=== PATIENT | male | born 1930 | race Caucasian/White ===

== ENCOUNTER 2016-06-18 20:32 | Emergency (ER) | payer OTHER ==
[~2016-06-18] VITALS: Ht 170.2 cm; Wt 54.4 kg
[~2016-06-18 20:32] MED LIST: SINEMET 25-1001 EAC1 PO; VITAMIN D1000 UNI1 PO
[2016-06-18 21:33] LABS: ABSOLUTE NEUTROPHILS 9.4 thou/uL (1.4-8.2); BASOPHILS 0.3 % (0.0-2.0); EOSINOPHILS 0.2 % (0.0-3.0); HEMATOCRIT 37.3 % (42.0-52.0); HEMOGLOBIN 12.5 gm/dL (14.0-18.0); LYMPHOCYTES 11.2 % (24.0-44.0); MCH 31.5 pg (26.0-34.0); MCHC 33.6 g/dL (28.0-37.0); MCV 93.6 fL (80.0-100.0); MONOCYTES 9.3 % (1.0-8.0); PLATELET COUNT 228 thou/uL (150-400); RBC 3.98 mil/uL (4.50-6.00); RDW 13.5 % (10.5-14.5); WBC 11.8 thou/uL (4.0-11.0)
[2016-06-18 21:34] LABS: URINE BILIRUBIN NEGATIVE (Negative); URINE BLOOD 3+ (Negative); URINE COLOR YELLOW; URINE GLUCOSE-RANDOM* NEGATIVE (Negative); URINE KETONES NEGATIVE (Negative); URINE LEUKOCYTES-REFLEX 2+ (Negative); URINE PROTEIN (DIPSTICK) 3+ (Negative); URINE UROBILINOGEN 0.2 E.U./dl (0.2-1.0)
[2016-06-18 21:36] LABS: MANUAL DIFF NO
[2016-06-18 21:40] LABS: CALCIUM 9.4 mg/dL (8.5-10.1); CREATININE 3.8 mg/dL (0.7-1.3); MAGNESIUM 2.1 mg/dL (1.8-2.4); POTASSIUM 4.1 mmol/L (3.5-5.1)
[2016-06-18 21:46] LABS: CASTS None Seen /LPF (None Seen); SQUAMOUS 4-10 Moderate /LPF (0-3); URINE WBC-REFLEX >25 Many /HPF (0-5)
[2016-06-18 21:48] LABS: CRYSTALS None Seen /LPF (None Seen)
[2016-06-18] MEDS ORDERED: KEFLEX500 MG PO (22:25)
[2016-06-18 23:07] VITALS: BP 126/61
== END 2016-06-18 23:08 | disposition home or self-care (01) ==
LOC: ER 20:32
PROVIDERS: Emergency Medicine
DX: N39.0 Urinary tract infection, site not specified (principal); R53.1 Weakness; N18.6 End stage renal disease

== ENCOUNTER 2016-11-10 15:30 | Inpatient (IN) | payer OTHER ==
[~2016-11-10] VITALS: Ht 170.2 cm; Wt 53.7 kg
[2016-11-10] VITALS (20 sets, daily range): BP systolic 98–136; BP diastolic 45–74
--- NOTE | ~2016-11-10 | O ---
[facility] [place] [address] OPERATIVE REPORT Name: SAMPSON CARDOSO Room #: 245-P ADM IN M.R.#: [id number] Admission: 11/10/16 Attend Phys: Jt Jennings DO Discharge: Date of : 30 Report #: [id number] THIS REPORT FOR: //name// CC: [facility] physician/PCP Jt Núñez MD DATE OF SERVICE: 11/11/2016 SURGEON: Shaquille Cummings MD. DENTURE LABORATORY TECHNICIAN: None. PREOPERATIVE DIAGNOSIS: Multiple decubitus ulcers (right heel, left hip, sacrum). POSTOPERATIVE DIAGNOSES: 1. Stage 4 right heel decubitus ulcer. 2. Stage 4 left hip decubitus ulcer. 3. Stage 4 sacral decubitus ulcer. PROCEDURES PERFORMED: 1. Excisional debridement of stage 4 right heel decubitus ulcer, including skin, subcutaneous tissue, muscle and bone (starting measurements 5 cm wide x 3 cm long; ending measurement 6.4 cm wide x 6.7 cm long, equals 42.9 cm2). 2. Application of biological skin substitute (MiroDerm) to debrided right heel decubitus ulcer, (42.9 cm2). 3. Excisional debridement of stage IV left hip decubitus ulcer, including skin, subcutaneous tissue, muscle and bone (starting measurement 4 cm wide x 6 cm long; ending measurement 8.7 cm wide x 13.3 cm long, equals 115.7 cm2). 4. Application of biological skin substitute (MiroDerm) to debrided left hip decubitus ulcer (5 x 5 cm to abscess cavity; 115.7 cm2 area of coverage). 5. Excisional debridement of stage 4 sacral decubitus ulcer including skin, subcutaneous tissue, muscle and bone (starting measurements 2.5 cm wide x 5.5 cm long; ending measurement 9.5 cm wide x 11 cm long equals 104.5 cm2). 6. Misonix ultrasonic debridement of stage IV right heel decubitus ulcer, stage 4 left hip decubitus ulcer, and a stage 4 sacral decubitus ulcer. ANESTHESIA: General endotracheal anesthesia and local anesthetic. ESTIMATED BLOOD LOSS: 25 mL. SPECIMEN: Skin, subcutaneous tissue, muscle and bone from all 3 areas. COMPLICATIONS: None appreciated. [address] [address] OPERATIVE REPORT Name: SAMPSON CARDOSO Room #: 245-P [facility] IN M.R.#: [id number] Admission: 11/10/16 Attend Phys: Jt Jennings DO Discharge: Date of : 30 Report #: [id number] INDICATIONS FOR PROCEDURE: This is an 86-year-old demented male patient with a history of Parkinson disease and end-stage renal disease with hemodialysis dependence. He presented to the [facility] with fever, chills and body aches. The patient reportedly had not been eating well and had some mental status changes. When seen in the Emergency Room, the patient was nonverbal. A large stage IV pressure ulcer was seen while the patient was in the Emergency Room, prompting consultation. The patient also had pressure wounds to his right heel and left hip. CT of the pelvis revealed a large sacral decubitus ulcer over the tip of the coccyx and lower sacrum, extending to the bone, with adjacent gas anteriorly. The patient had an elevated white blood cell count and lactate, which has normalized since his admission. The patient presents now for excisional debridement. OPERATIVE FINDINGS: Please see measurements above. The patient's left hip decubitus ulcer had an associated 5 x 5 cm abscess overlying the muscle, extending to the anterior left thigh. MiroDerm mesh was placed within the cavity. MiroDerm was also applied to the right heel and left hip wounds, but not to the sacrum due to increased risk of contamination from proximity to the anus. There was mild bony involvement of both the right heel and left hip, with extensive bony involvement of the coccyx and sacrum, which were both grossly necrotic and malodorous. The rectum was protected throughout the dissection. DESCRIPTION OF PROCEDURE IN DETAIL: After the risks, benefits, and expectations of the operation were discussed in detail with the patient's family, informed consent was obtained. The patient was identified in preoperative holding area. He was receiving scheduled IV antibiotics. He was taken to the operating room and he was placed in the supine position. He was then given IV sedation and he was intubated without incident. While in the supine position, his leg was placed under some bumps and his right heel was prepped and draped in the standard sterile fashion. A time-out was performed to identify the correct patient and procedure. Local anesthetic was infiltrated into the skin and subcutaneous tissue, in the area of the planned incision. A sharp #10 blade scalpel was used to make an incision through the skin and subcutaneous tissue. The tissue was then excised sharply down to the bone. There were soft areas of the bone, which were opened with a rongeur. Cultures were taken more superficially and from the bone. After debriding away tissue down to healthy bleeding tissue throughout the area, the bone was filed down with a rasp. Bleeding points were made hemostatic with electrocautery. The Misonix device was then used to ultrasonically debride the entire surface area of the wound. MiroDerm 5 x 5 cm fenestrated skin substitute was then sutured to the periphery of the wound as well as to the wound base using interrupted 2-0 Vicryl sutures. Excess MiroDerm was trimmed away. The MiroDerm was then covered with Adaptic and dressed with a wet-to-dry normal saline Kerlix sponge, 4 x 4s, a Kerlix roll, and an Michael wrap. [address] [address] OPERATIVE REPORT Name: SAMPSON CARDOSO Room #: 245-P [facility] IN ..#: [id number] Admission: 11/10/16 Attend Phys: Jt Jennings DO Discharge: Date of : 30 Report #: [id number] The patient was then repositioned to the right lateral decubitus position. The patient's left hip and sacrum area were prepped and draped in the standard sterile fashion. The left hip debridement was undertaken first. Local anesthetic was infiltrated into the skin and subcutaneous tissue in the area of the planned incision. A sharp #10 blade scalpel was used to make the incision through the skin and subcutaneous tissue. The excess tissue was then trimmed away sharply. Electrocautery was used to control bleeding. An additional area of purulence was identified on the left anterior thigh, extending over the quadriceps muscle. The abscess was drained. Further excisional debridement of tissue was necessary at the superior most aspect of the wound. All necrotic tissue was dissected free. The wound was then irrigated. The Magtononix ultrasonic debridement device was then used to debride the entire surface area of the left hip wound. Bleeding points were made hemostatic. The MiroDerm skin substitute was then applied to the wound base and edges of the wound. Simple interrupted 2-0 Vicryl sutures were used to approximate the mesh to the tissue. Prior to doing this, the abscess cavity was irrigated and suctioned. Cultures have been taken from the superficial tissue as well as from the bone. The MiroDerm mesh was oriented, then advanced into the abscess cavity. The remainder of the MiroDerm mesh was sutured to the wound edges and base of the wound. Excess MiroDerm was discarded. Adaptic, then 4 x 4s were used to dress the wound. Excisional debridement of the sacrococcygeal was undertaken next. Local anesthetic was infiltrated into the skin and subcutaneous tissue in the area of the planned incision. A sharp #10 blade scalpel was used to make the incision through the skin and subcutaneous tissue. Electrocautery was used to dissect through the subcutaneous tissue and excise the necrotic skin and subcutaneous tissue. Areas of muscle appeared to be nonviable. The sacrum and coccyx were both grossly necrotic. The coccyx was removed. The sacrum was then debrided away with rongeur to excise all affected areas. Cultures were taken from the more superficial tissue as well as from the bone. The small abscess cavity anterior to the sacrum was opened. The wound was then irrigated and suctioned. The Magtononix ultrasonic device was then used to debride the entire surface area of the sacral wound. Bleeding points were made hemostatic with electrocautery. Bone wax was applied to an area of the sacrum that oozed in areas where the bleeding did not stop with electrocautery. The wound was then irrigated and suctioned. A 1:1 Betadine to normal saline moistened gauze was then packed into the sacrococcygeal debridement area. Dressings were applied. The patient tolerated the procedure well. He was awakened, extubated, and [facility] [address] [place] [address] OPERATIVE REPORT Name: SAMPSON CARDOSO Room #: 245-P [facility] IN M.R.#: [id number] Admission: 11/10/16 Attend Phys: Jt Jennings DO Discharge: Date of : 30 Report #: [id number] taken to recovery room in stable condition with no apparent intraoperative complications. <ELECTRONICALLY SIGNED> By: Shaquille Cummings MD, FACS 11/12/16 0822 2046 230 Shaquille Cummings MD, FACS /nt
--- NOTE | ~2016-11-10 | HC ---
[facility] [place] [address] CONSULTATION Name: SAMPSON CARDOSO Room #: 245-P [facility] IN M.R.#: [id number] Admission: 11/10/16 Attend Phys: Jt Jennings DO Discharge: Date of : 30 Report #: [id number] THIS REPORT FOR: //name// CC: [facility] physician/PCP Jt Jennings INFECTIOUS DISEASE CONSULTATION ATTENDING PHYSICIAN: Dick. REASON FOR CONSULTATION: Sepsis. 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 The patient is treated with single dose Zosyn and vancomycin. I ordered Zosyn 2.25 grams IV every 8 hours and vancomycin random level. We will reorder vancomycin per protocol. Currently, the patient in the intensive care unit. Fluids have been stopped. The patient is awake, but unable to give any information whatsoever. PAST MEDICAL HISTORY: End-stage renal disease, on hemodialysis through a left arm fistula Anemia of chronic disease. Stage 4 sacral decubitus, possible osteomyelitis. Stage 4 left hip decubitus. Dry black eschar right heel. Possible Parkinson's disease. There is a history of an abnormal EKG with ischemic changes on lateral leads, very much atrial contractures. SOCIAL HISTORY: Unable to obtain. FAMILY HISTORY: Unable to obtain. REVIEW OF SYSTEMS: Unable to obtain. PHYSICAL EXAMINATION: GENERAL: Elderly white man, unable to give any information whatsoever. VITAL SIGNS: Presenting temperature of 101.6 on admission, pulse 122, respirations ____, BP 121/73, subsequently blood pressure dropped to 89/55. HEENMT: Pupils reactive. Mouth: Dry mucous membrane. NECK: Supple. LUNGS: Clear. HEART: S1, S2. No gallop. ABDOMEN: Soft, no masses or megaly. GENITALIA: Ilma catheter in place. RECTAL: Deferred. Incontinent of stool. EXTREMITIES: The patient has stage 4 sacral decubitus with exposed deep [facility] [address] [place] [address] CONSULTATION Name: SAMPSON CARDOSO Room #: 245-P [facility] IN M.R.#: [id number] Admission: 11/10/16 Attend Phys: Jt Jennings DO Discharge: Date of : 30 Report #: [id number] structures. There is also a left hip decubitus, stage 4. There is a dry eschar black on the right heel. Extremities with wasting of muscles. NEUROLOGIC: Grossly within normal limits. LABORATORY DATA: Sodium 142, potassium 4, CO2 of 29, BUN 66, creatinine 4.1, glucose 147. SGOT 76, lipase 61. Total bilirubin 1.2, magnesium 2.1, albumin 1.2 g/dL. NT-proBNP greater than 70,000. Troponin 0.10. White blood cell count on admission 21,900, down to 12,200 today, hemoglobin 6.8 g/dL, platelets 247,000. The white blood cell count differential revealed 90% neutrophils yesterday. A vancomycin random is 12 today. MRSA negative by PCR. Viral respiratory panel pending. Procalcitonin elevated at 9.40. Urinalysis revealed 2+ protein, 2+ bilirubin, trace blood, 2+ urobilinogen, trace leukocyte esterase. The microscopic exam revealed pyuria and bacteriuria as well as fine granular cast compatible with acute pyelonephritis. The blood gases reveal pH 7.45, pCO2 of 40, pO2 of 76, bicarbonate 27, lactate 2.25. These set of gases on 2 liters oxygen nasal cannula. Decubitus culture reveals Staphylococcus aureus, possible MSSA. Blood cultures, one of the sample revealed gram-positive cocci and another sample revealed gram-negative rods. RADIOLOGY EVALUATION: Right ankle x-ray revealed no evidence of osteomyelitis. A chest x-ray revealed right internal jugular central venous catheter. CT scan of the pelvis did reveal a moderate amount of stool in the colon, possible rectal prolapse. Large sacral decubitus ulcer over the tip of the coccyx and lower sacrum with gas in adjacent to the bone, possible osteomyelitis. MEDICATIONS: The patient is currently on treatment with vancomycin 500 mg post-hemodialysis 3 times weekly, Zosyn 2.25 grams IV every 8 hours, topical oxychlorosene, p.r.n. glucose glucagon. Pressors has been ordered and as needed, he has received none. Intravenous fluids have been discontinued currently. ASSESSMENT: 1. Severe sepsis. 2. Polymicrobic bacteremia with gram-negative rods and gram-positive cocci. 3. Stage 4 sacral decubitus -- osteomyelitis. 4. Possible stage 4 left hip decubitus. 5. Eschar black, right heel. 6. End-stage renal disease, on hemodialysis. 7. Dementia. 8. Severe anemia. 9. Severe malnutrition. SUGGESTIONS: Recommend local wound care to decubitus, dialysis 3 times weekly, intravenous vancomycin and Zosyn as currently ordered. [facility] [address] [place] [address] CONSULTATION Name: SAMPSON CARDOSO Room #: 245-P ADM IN M.R.#: [id number] Admission: 11/10/16 Attend Phys: Jt Jennings DO Discharge: Date of : 30 Report #: [id number] Jennings, thank you for requesting my suggestions in the care of your patient. <ELECTRONICALLY SIGNED> By: Margarito Santamaria MD 11/12/16 1321 0914 1317 Margarito Santamaria MD /nt
--- NOTE | ~2016-11-10 | S ---
[address] [place] [address] SURGICAL PATH RPT PROCEDURE Name: GUZMAN CAM Room #: 245-P ADM IN M.R.#: [id number] Admission: 11/10/16 Date of : 30 Discharge: Report #: [id number] Path Case #: [id number] PATHOLOGY REPORT COLLECTION DATE: 11/11/2016 RECEIVED DATE: 11/12/2016 SUBMITTING PHYS: Dr. Shaquille Cummings OTHER PHYS: Dr. Jt Jennings SPECIMEN(S) RECEIVED: A.Necrotic tissue right heel B.Right calcaneous C.Left hip tissue D.Left ischial tuberosity E.Sacrum and coccyx F.Sacral tissue * * * * * * * * * * * * FINAL DIAGNOSIS: A. Skin with underlying soft tissue, "necrotic tissue right heel": - Extensive epidermal, dermal, and soft tissue gangrenous necrosis and fat necrosis with focal acute abscess formation. - There is no evidence of atypia or malignancy. - See comment. B. Fragments of bone and surrounding soft tissue, "right calcaneous": - Soft tissue and bone revealing acute osteomyelitis and degenerative changes. C. Skin with underlying fibroadipose tissue, "left hip tissue": - Extensive gangrenous necrosis with acute inflammation forming acute abscess. - See comment. D. Bone and soft tissue, "left ischial tuberosity": - Fragments of bone with surrounding soft tissue revealing acute abscess formation with gangrenous type of necrosis. E. Bone and soft tissue, "sacrum and coccyx": - Extensive acute inflammation extending into the underlying bone with microabscess formation with foci of osteomyelitis. - Extensive gangrenous type of necrosis. F. Skin with underlying soft tissue, "sacral tissue": - Extensive ulceration with necrotic acute inflammatory exudate extending deeply into the underlying soft tissue with fat necrosis and microabscess formation. COMMENT: Correlate with microbiological cultures. (SHA:mgedgra; 11/13/2016) [address] [address] SURGICAL PATH RPT PROCEDURE Name: GUZMAN CAM Room #: 245-P ADM IN M.R.#: [id number] Admission: 11/10/16 Date of : 30 Discharge: Report #: [id number] Path Case #: [id number] PATHOLOGIST: Ankur Henriquez M.D. REPORT ELECTRONICALLY SIGNED BY: Ankur Henriquez M.D. DATE/TIME: 11/13/2016 13:07 * * * * * * * * * * * * GROSS PATHOLOGY: A. The specimen is received in formalin, labeled "Guzman Cam, necrotic tissue right heel". Received is a segment of pale garcia to dark kowalski necrotic soft tissue with loosely attached skin measuring 6.2 x 4.2 x 1.6 cm in greatest dimensions. The specimen is submitted representatively in cassette A1. B. The specimen is received in formalin, labeled "Guzman Cam, right calcaneus". Received are multiple segments of pink-garcia soft tissue admixed with pale yellow, granular segments of calcified material measuring 3.2 x 2.2 x 0.9 cm in aggregate dimensions. The specimen is submitted representatively in cassette B1, following decalcification. C. The specimen is received in formalin, labeled "Guzman Cam, left hip tissue". Received are multiple segments of pale garcia to dark kowalski, necrotic skin admixed with pale yellow to kowalski-garcia soft tissue measuring 11.2 x 6.4 x 3.3 cm in aggregate dimensions. The specimen is submitted representatively in cassette C1. D. The specimen is received in formalin, labeled "Guzman Cam, left ischial tuberosity". Received are multiple fragments of garcia-brown soft tissue admixed with pale yellow, fibroadipose tissue measuring 2.8 x 1.7 x 0.4 cm in aggregate dimensions. The specimen is submitted representatively in cassette D1. E. The specimen is received in formalin, labeled "Guzman Cam, sacrum and coccyx". Received are multiple segments of garcia-brown soft tissue admixed with fragments of dark garcia bone measuring 5.7 x 3.9 x 0.8 cm in aggregate dimensions. The specimen is submitted representatively in cassette E1, following decalcification. F. The specimen is received in formalin, labeled "Guzman Cam, sacral tissue". Received is a donut-shaped segment of pale garcia and partially necrotic skin with attached underlying pale white to yellow soft tissue measuring 7.0 x 6.4 x 1.4 cm in greatest dimensions. The specimen is submitted representatively in cassette F1. (DAC; 11/12/2016) CLINICAL HISTORY: Decubitus ulcer sacrum, heel and hip INITIAL CPT CODE(S): A; 32363 B; 27399, 59337 C; [address] [address] SURGICAL PATH RPT PROCEDURE Name: GUZMAN CAM Room #: 245-P ADM IN M.R.#: [id number] Admission: 11/10/16 Date of : 30 Discharge: Report #: [id number] Path Case #: [id number] D; [id number] E; [id number], [id number] F; [id number] Professional services performed by [facility] at [place] [address] [address], [place] [address] Technical services performed by [facility] at [address] [place] [address], [facility] [address] [address]. [facility] [address] [place] [address] PHONE: [phone] DIRECTOR: Phi Nevarez M.D. * * * END OF REPORT * * *
--- NOTE | ~2016-11-10 | HC ---
[facility] [place] [address] [place] [address] CONSULTATION Name: SAMPSON CARDOSO Room #: 245-P ADM IN M.R.#: [id number] Admission: 11/10/16 Attend Phys: Jt Jennings DO Discharge: Date of : 30 Report #: [id number] THIS REPORT FOR: //name// CC: [facility] physician/PCP Jt Jennings INDICATION FOR THE CONSULTATION: End-stage renal disease. REASON FOR PRESENTATION: Brought by the family. 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 EMS was called to his family that the patient is failing. Family reported that ever since he got the flu shot few days ago, he started to have fever and body headaches along with chills. The details of the history are really limited due to the fact that the patient is not able to provide us with the history given his dementia. On presentation to the emergency room, sepsis criteria were met. He was found to have extensive sacral and lower extremities decub. I was asked to manage his dialysis. PAST MEDICAL HISTORY: 1. End-stage renal disease, maintained on dialysis every Thursday, Thursday and Thursday. 2. Sacral decub. 3. Status post left AV fistula. 4. Osteomyelitis. ALLERGIES: No known drug allergies. MEDICATIONS: Listed on the patient's medications only cephalexin. FAMILY HISTORY: Unobtainable given the patient's mental status and it was not provided to the ER staff. FAMILY HISTORY AND SOCIAL HISTORY: None reported and the patient is not able to provide me with the details. REVIEW OF SYSTEMS: Unobtainable given the patient's mental status. PHYSICAL EXAMINATION: GENERAL: The patient is very thin, cachectic, emaciated. VITAL SIGNS: Blood pressure of 89/55, temperature of 36.4. He has a left upper extremity AV fistula. HEAD AND NECK: Emaciated, no JVD. CHEST: Decreased air entry bilaterally with minimal crackles. CARDIOVASCULAR: No rub. ABDOMEN: Soft and nontender. [facility] [address] [place] [address] CONSULTATION Name: SAMPSON CARDOSO Room #: 245-P [facility] IN M.R.#: [id number] Admission: 11/10/16 Attend Phys: Jt Jennings DO Discharge: Date of : 30 Report #: [id number] LOWER EXTREMITIES: Extensive heel ulcers bilaterally. Images of his sacral decub were reviewed. LABORATORY VALUES: Reviewed. BUN is 66, creatinine is 4.1. Imaging including his chest x-ray and pelvis CTs were reviewed. ASSESSMENT, IMPRESSION AND PLAN: 1. End-stage renal disease. 2. Sacral decub with osteomyelitis. 3. Sepsis. 4. Severe debility. 5. We will contact with the family regarding the dialysis regimen of the patient. 6. Discontinue IV fluids. 7. Use pressors p.r.n. 8. This is an 86-year-old with dementia, severe sacral decub osteomyelitis, and end-stage renal disease, I would definitely discuss with the family, palliative and comfort care given his comorbid issues. By: [id number] Florence Frank MD /nt
--- NOTE | ~2016-11-10 | EKG ---
[address] [place] [place] [address] ELECTROCARDIOGRAM REPORT Name: SAMPSON CARDOSO Room #: REG [facility] [place]#: [id number] Admission: 11/10/16 Attend Phys: Discharge: Date of : 30 Report #: [id number] THIS REPORT FOR: //name// [facility] ED Test Date: 2016-11-10 Test Time: 15:47:17 Pat Name: SAMPSON CARDOSO Department: Room: Gender: M Solutions Engineer: [id number] : 1930 Requested By: Brannon Kang Order Number: [id number] MD: Braulio Santamaria Measurements Intervals [place] Rate: 123 P: -74 ID: [id number] QRS: -60 QRSD: 92 T: 88 QT: 323 QTc: 462 Interpretive Statements Sinus or ectopic atrial tachycardia Atrial premature complex Left anterior fascicular block Abnormal T, consider ischemia, lateral leads No previous ECG available for comparison Electronically Signed On 11-10-2016 16:33:55 CDT by Braulio Santamaria [email or web address] <ELECTRONICALLY SIGNED> By: Braulio Santamaria MD 11/10/16 1633 1547 154 Braulio Santamaria MD /CHAD
--- NOTE | ~2016-11-10 | HC ---
[facility] [place] [address] CONSULTATION Name: SAMPSON CARDOSO Room #: 245-P [facility] IN M.R.#: [id number] Admission: 11/10/16 Attend Phys: Jt Jennings DO Discharge: Date of : 30 Report #: [id number] THIS REPORT FOR: //name// CC: ALBARO physician/PCP Jt Jennings DATE OF SERVICE: 11/11/2016 REASON FOR CONSULTATION: Decubitus ulcers. HISTORY OF PRESENT ILLNESS: This is an 86-year-old demented male patient with history of Parkinson's Disease and end-stage renal disease with hemodialysis dependence who presented to the [facility] Emergency Room with fever, chills and bodyaches. The patient reportedly had not been eating. When seen in the Emergency Room, he was nonverbal, and according to the patient's family, this is a significant change for him. 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 The patient underwent a CT of the pelvis showing a large sacral decubitus ulcer over the tip of the coccyx and lower sacrum extending to the bone with adjacent gas. I have been asked to see the patient for further evaluation and treatment. The patient was felt to be septic with an elevated white blood cell count and an elevated lactate. He has been admitted to the intensive care unit. PAST MEDICAL HISTORY: End-stage renal disease with hemodialysis dependence, status post left upper extremity AV fistula, Parkinson's Disease with dementia and generalized debility. MEDICATIONS: Please see the hospital chart for dosing details. The patient is currently receiving Zosyn and vancomycin as well as p.r.n. medications. ALLERGIES: No known drug allergies. FAMILY HISTORY: Reviewed and noncontributory to this hospitalization. SOCIAL HISTORY: The patient is a retired physician. There is no reported use of tobacco, alcohol or illicit drugs. The patient lives with his son and xyvkfocb-[id number]-lng. He undergoes hemodialysis on Thursday, and Thursday, most recently dialyzed this past Thursday. REVIEW OF SYSTEMS: As per history of present illness. Other review of systems is unobtainable as the patient is nonverbal. PHYSICAL EXAMINATION: VITAL SIGNS: Temperature 96.9, blood pressure 89/55, pulse 71, respirations 24. [facility] [address] [place] [address] CONSULTATION Name: ASMPSON CARDOSO Room #: 245-P [facility] IN M.R.#: [id number] Admission: 11/10/16 Attend Phys: Jt Jennings DO Discharge: Date of : 30 Report #: [id number] GENERAL: This is an 86-year-old nonverbal male patient in no acute distress. He is currently undergoing hemodialysis. HEENT: Atraumatic, normocephalic with moist mucosal membranes. NECK: Supple, no appreciable lymphadenopathy. Trachea is midline. CHEST: Clear bilaterally. CARDIOVASCULAR: Regular rate and rhythm. ABDOMEN: Soft and nondistended with no appreciable tenderness to palpation. There are no palpable masses, no appreciable hernias. GENITOURINARY: Normal external male genitalia. EXTREMITIES: No clubbing or cyanosis. The posterior aspect of his right heel shows eschar. A left upper extremity AV fistula is present. RECTAL: Shows a large sacral decubitus ulcer with malodorous drainage. An unstageable left hip ulcer is also present. SKIN AND INTEGUMENTARY: No jaundice; skin changes as noted above. RADIOLOGIC STUDIES: CT of the pelvis, findings are as noted above. Three-view x-ray of the right ankle showed no evidence for osteomyelitis. Chest x-ray showed a small right pleural effusion. LABORATORY DATA: CBC this morning showed a white blood cell count of 12.2, hemoglobin 6.8, hematocrit 21.3 and platelets 247 with 72% segmented neutrophils and 18% bandemia. His initial CBC at the time of his admission showed a white blood cell count of 21.9, hemoglobin 8.3, hematocrit 26.5 and platelets 367. His lactate was elevated at 7.5 and this was coming down to 1.4 earlier this morning. The patient's BNP was greater than 70,000. Comprehensive metabolic profile showed a sodium of 142, potassium 4.0, chloride 105, CO2 29, BUN 66, creatinine 4.1 and glucose 147. Bilirubin was 1.2. The remainder of his liver function tests was essentially within normal limits other than an elevated AST of 76. IMPRESSION AND PLAN: This is an 86-year-old male patient with history of Parkinson disease, dementia, end-stage renal disease with hemodialysis dependence who now appears to be septic, likely secondary to his decubitus ulcers. He appears to have osteomyelitis/stage 4 changes involving the sacrococcygeal area. His left hip is unstageable, as is his right heel. I discussed these findings with the patient's family who are also the medical decision makers. The patient would benefit from excisional debridement of his wounds and ultimately may benefit from conversion of this fecal stream (diverting colostomy) to optimize the healing environment. I sincerely appreciate the opportunity to participate in the care of this [facility] [address] [place] [address] CONSULTATION Name: SAMPSON CARDOSO Room #: 245-P ADM IN M.R.#: [id number] Admission: 11/10/16 Attend Phys: Jt Jennings DO Discharge: Date of : 30 Report #: [id number] patient and will leave further recommendations and orders in the EMR as appropriate. <ELECTRONICALLY SIGNED> By: Shaquille Cummings MD, FACS 11/11/162049 [id number] Shaquille Cummings MD, FACS /nt
--- NOTE | ~2016-11-10 | HC ---
[facility] [place] [address] CONSULTATION Name: SAMPSON CARDOSO Room #: 245-P ADM IN M.R.#: [id number] Admission: 11/10/16 Attend Phys: Jt Jennings DO Discharge: Date of : 30 Report #: [id number] THIS REPORT FOR: //name// CC: ALBARO physician/PCP Jt Jennings DATE OF SERVICE: 11/10/2016 IMPRESSION: 1. Severe sepsis. 2. Probable pneumonia. 3. Acute hypoxemia. 4. End-stage renal disease. 5. History of Parkinson's. 6. Possible osteomyelitis. 7. Contractures. 8. Elevated LFT. 9. End-stage renal disease. 10. Protein calorie malnutrition. 11. Elevated troponin. 12. Leukocytosis. 13. Anemia, normocytic. PLAN: Sepsis protocol, antibiotics per ID, aerosol therapy, wound care to see, Neurology to see. HISTORY OF PRESENT ILLNESS: An 86-year-old male with decreased mental status, weakness, received flu shot few days ago. Usually receives care at [facility]. Fever, chills per family member. I spoke to her on phone. PAST MEDICAL HISTORY: Fistula on the left. ALLERGIES: None known. SOCIAL HISTORY: Negative tobacco, ETOH. REVIEW OF SYSTEMS: The patient has had decreased appetite and decreased mental status of recent. Discussed code situation in the present. Family member wishes all done as the patient did not give her definitive except that he would not want to pass in hospital. I believe I spoken to Barrett at [phone]. PHYSICAL EXAMINATION: VITAL SIGNS: Temperature 101.6, pulse 90, respirations 37, BP 130/55. LUNGS: Coarse. [facility] [address] [place], [place] [address] CONSULTATION Name: SAMPSON CARDOSO Room #: 245-P ADM IN M.R.#: [id number] Admission: 11/10/16 Attend Phys: Jt Jennings DO Discharge: Date of : 30 Report #: [id number] HEART: Regular. ABDOMEN: Bowel sounds present. EXTREMITIES: Showed no edema. Lima catheter in place. Chest x-ray: Showed small effusion, possible infiltrate. Lactate 7.5, BUN 57, creatinine 4.3, SGOT 77. Total bilirubin 1.5, alkaline phosphatase 110, albumin 1.6. Procalcitonin 9.4. Ankle, no osteo. ProBNP greater than 70,000. We will follow closely with you. <ELECTRONICALLY SIGNED> By: Erasmo Teresa MD 11/13/16 [id number] Erasmo Teresa MD /nt
--- NOTE | ~2016-11-10 | HC ---
[facility] [place] [address] CONSULTATION Name: SAMPSON CARDOSO Room #: 245-P [facility] IN M.R.#: [id number] Admission: 11/10/16 Attend Phys: Jt Jennings DO Discharge: Date of : 30 Report #: [id number] THIS REPORT FOR: //name// CC: ALBARO physician/PCP Jt Jennings DATE OF SERVICE: 11/10/2016 NEPHROLOGY CONSULTATION DATE OF SERVICE: 11/10/2016 REASON FOR CONSULTATION: End-stage renal disease requiring hemodialysis. HISTORY OF PRESENT ILLNESS: This is an 86-year-old male who was admitted to the Emergency Room. He was brought in with a fever. He has been found to have a leukocytosis with white count of 21,000. He has also been found to have a couple of decubitus ulcers, one on his left hip area and one on his sacrum. There was a CT scan done of his pelvis in the Emergency Room. It showed the sacral ulcer is deep and actually has gas forming elements around the coccyx. He has been started on antibiotics. He has not been hypotensive. He did have a fever upon presentation. From a renal standpoint, the patient has end-stage renal disease and is a chronic hemodialysis patient. The etiology of his end-stage renal disease is not known at this time to me. Through third person who talked to the patient's bqxxwphj-io-ilv, he dialyzed at the [facility] in [place] on a Thursday, , Thursday basis. He dialyzes using a left upper arm fistula. I assume that his prior hospitalizations have been at [facility] as there are no records here at [facility] of hospitalizations. I also have no records through our office and EMR, which I reviewed to see if we could find his name. PAST MEDICAL HISTORY: End-stage renal disease as noted above. He is also demented. He is nonverbal. He has obviously had surgery for fistula placement in his arm, really not much else available at this time. MEDICATIONS: No medications on a regular basis, at least none that he takes at home. This is based again upon his bpuqaxpp-za-qeg who apparently shares a living situation with him. ALLERGIES: No known medical allergies. FAMILY HISTORY: Unavailable. SOCIAL HISTORY: The patient apparently has been living with his fvpanshd-tt-iud. Again, he dialyzes at [facility] in [place]. 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 REVIEW OF SYSTEMS: Apparently, he is nonverbal, uncertain how he eats or if he is able to do anything with that. He certainly does not participate much in his interview process or exam at this time. PHYSICAL EXAMINATION: GENERAL: Wasted, somewhat cachectic appearing male. He is lying in bed. He opens his eyes to voice, tries to mouth a couple of words, but otherwise is really not able to communicate. VITAL SIGNS: Blood pressure 114/62, heart rate is 77, oxygen saturation 99% and respiratory rate of 30. HEENT: Shows somewhat sunken facial features. Pupils are equal and reactive. Sclerae nonicteric. Oral mucosa is dry. NECK: Veins are not distended. CHEST: Shows shallow respirations bilaterally. I hear no rales, rhonchi or wheezes. CARDIOVASCULAR: Heart has a regular rate and rhythm with a grade 2 systolic murmur at the apex, which is rather harsh, no rub, no gallop. ABDOMEN: Scaphoid. Bowel sounds are present. It is soft, nontender at this time. I am unable to palpate organomegaly or masses. EXTREMITIES: Show diffuse muscle atrophy upper and lower extremities. He has a nice left upper arm brachiocephalic fistula in place, which has excellent thrill. The nursing staff is just getting ready to undress his wounds for photography purposes, but I have not yet seen them. RADIOLOGIC IMAGING: Chest x-ray showed some diffuse chronic interstitial type changes. There is some blunting of the right costal margin, otherwise negative chest x-ray. ____ his CT scan of the pelvis demonstrating the air around his coccyx from his decubitus. ASSESSMENT: 1. End-stage renal disease. Report is that he dialyzes on Thursday, , Thursday basis and again reportedly he dialyzed last 2 days ago on his regular schedule. He actually looks somewhat on the volume depleted side at this time. His electrolytes are not bad. He has a nice fistula in place. We will plan on dialysis tomorrow, which would be his normal day. 2. Sepsis related to his decubitus ulcer. He has a substantial leukocytosis and fever. He is on broad spectrum antibiotics and will require a lot of wound care. 3. Anemia related to his end-stage renal disease. 4. Chronic dementia apparently. [facility] [address] [place] [address] CONSULTATION Name: SAMPSON CARDOSO Room #: 245-P [facility] IN .R.#: [id number] Admission: 11/10/16 Attend Phys: Jt Jennings DO Discharge: Date of : 30 Report #: [id number] PLAN: 1. We will plan on dialysis tomorrow. 2. Continue wound care. 3. Continue antibiotics. 4. We will follow along the care of this patient. By: [id number] Eric Sanchez MD /selene
[~2016-11-10 15:30] MED LIST changes: +KEFLEX500 MG PO
[2016-11-10 15:59] LABS: HEMATOCRIT 26.5 % (42.0-52.0); HEMOGLOBIN 8.3 gm/dL (14.0-18.0); MCH 28.5 pg (26.0-34.0); MCHC 31.5 g/dL (28.0-37.0); MCV 90.5 fL (80.0-100.0); PLATELET COUNT 367 thou/uL (150-400); RBC 2.93 mil/uL (4.50-6.00); RDW 16.2 % (10.5-14.5); WBC 21.9 thou/uL (4.0-11.0)
[2016-11-10 16:01] LABS: MANUAL DIFF YES
[2016-11-10 16:07] LABS: CALCIUM 8.6 mg/dL (8.5-10.1); CREATININE 4.3 mg/dL (0.7-1.3); POTASSIUM 4.9 mmol/L (3.5-5.1)
[2016-11-10 16:20] LABS: ALBUMIN 1.6 g/dL (3.4-5.0); TOTAL BILIRUBIN 1.5 mg/dL (<0.1-1.0)
[2016-11-10 16:36] LABS: URINE BILIRUBIN 2+ (Negative); URINE BLOOD TRACE (Negative); URINE COLOR BROWN; URINE GLUCOSE-RANDOM* NEGATIVE (Negative); URINE KETONES NEGATIVE (Negative); URINE NITRITE NEGATIVE (Negative); URINE PROTEIN (DIPSTICK) 2+ (Negative); URINE SPECIFIC GRAVITY 1.015 (1.003-1.035)
[2016-11-10 16:37] LABS: ABSOLUTE NEUTROPHILS 20.4 thou/uL (1.4-8.2); NUCLEATED RBCS 1 /100WBC; TOTAL CELL COUNT 100
[2016-11-10 16:38] LABS: ANISOCYTOSIS 1+; POLYCHROMASIA OCCASIONAL
[2016-11-10 16:45] LABS: AMORPHOUS URATES Moderate /LPF (None Seen); FINE GRANULAR CASTS >10 Many /LPF (None Seen); SQUAMOUS 0-3 Few /LPF (0-3); URINE RBC 0-2 Rare /HPF (0-2); URINE WBC 6-15 Few /HPF (0-5)
[2016-11-10 18:55] LABS: APTT 38.7 Seconds (24.5-32.8); INR 1.4; PROTIME 14.5 Seconds (9.3-11.4)
[2016-11-10 20:28] LABS: CALCIUM 7.8 mg/dL (8.5-10.1); CREATININE 4.2 mg/dL (0.7-1.3); POTASSIUM 4.3 mmol/L (3.5-5.1)
[2016-11-10 20:52] LABS: TROPONIN-I 0.15 ng/mL (<0.04-0.07)
[2016-11-10 22:52] LABS: ABG SAMPLE TYPE ARTERIAL; BE(vivo) 3.6 mmol/L (-2 to +3); HCO3 27.7 mmol/L (22.0-26.0); LACTATE 2.25 mmol/L (0.5-2.0); O2(CT) 13.1 mL/dL (15.0-23.0); O2Hb 94.2 % (92.0-98.0); pH 7.459 (7.360-7.450); sO2 95.9 % (92.0-98.0)
[2016-11-10 22:53] LABS: STICK SITE R.RADIAL
[2016-11-11] VITALS (65 sets, daily range): BP systolic 74–148; BP diastolic 42–78
[2016-11-11 00:02] LABS: CALCIUM 7.9 mg/dL (8.5-10.1); POTASSIUM 4.1 mmol/L (3.5-5.1)
[2016-11-11 04:37] LABS: HEMOGLOBIN 6.8 gm/dL (14.0-18.0)
[2016-11-11 04:38] LABS: HEMATOCRIT 21.3 % (42.0-52.0); MCH 29.3 pg (26.0-34.0); MCHC 31.9 g/dL (28.0-37.0); MCV 91.8 fL (80.0-100.0); RBC 2.32 mil/uL (4.50-6.00); RDW 16.2 % (10.5-14.5); WBC 12.2 thou/uL (4.0-11.0)
[2016-11-11 04:51] LABS: ALBUMIN 1.2 g/dL (3.4-5.0); CALCIUM 7.7 mg/dL (8.5-10.1); CREATININE 4.1 mg/dL (0.7-1.3); TOTAL BILIRUBIN 1.2 mg/dL (<0.1-1.0); TOTAL PROTEIN 5.4 g/dL (6.4-8.2); TROPONIN-I 0.1 ng/mL (<0.04-0.07)
[2016-11-11 05:11] LABS: MANUAL DIFF YES; PLATELET COUNT 247 thou/uL (150-400)
[2016-11-11 09:28] LABS: ANISOCYTOSIS 1+; HYPOCHROMASIA 2+; PLATELET ESTIMATE NORMAL; TOTAL CELL COUNT 100
[2016-11-11 11:51] LABS: APTT 38.3 Seconds (24.5-32.8); INR 1.3; PROTIME 13.7 Seconds (9.3-11.4)
[2016-11-12] VITALS (46 sets, daily range): BP systolic 72–130; BP diastolic 42–74
[2016-11-12 04:51] LABS: HEMATOCRIT 27.4 % (42.0-52.0); MCH 29.5 pg (26.0-34.0); MCHC 33.1 g/dL (28.0-37.0); MCV 89.2 fL (80.0-100.0); PLATELET COUNT 201 thou/uL (150-400); RBC 3.07 mil/uL (4.50-6.00); RDW 16.2 % (10.5-14.5); WBC 12.7 thou/uL (4.0-11.0)
[2016-11-12 04:52] LABS: HEMOGLOBIN 9.1 gm/dL (14.0-18.0); MANUAL DIFF YES
[2016-11-12 05:10] LABS: CALCIUM 7.4 mg/dL (8.5-10.1); POTASSIUM 3.5 mmol/L (3.5-5.1)
[2016-11-12 09:02] LABS: ABSOLUTE NEUTROPHILS 11.8 thou/uL (1.4-8.2); NUCLEATED RBCS 1 /100WBC; PLATELET ESTIMATE NORMAL; TOTAL CELL COUNT 100
[2016-11-12 23:11] LABS: INFLUENZA B Negative (Negative); METAPNEUMOVIRUS Negative (Negative)
[2016-11-13] VITALS (23 sets, daily range): BP systolic 73–103; BP diastolic 40–72
[2016-11-13 05:13] LABS: ABG SAMPLE TYPE ARTERIAL; BE(vivo) 5.2 mmol/L (-2 to +3); HCO3 30.3 mmol/L (22.0-26.0); LACTATE 1.42 mmol/L (0.5-2.0); O2(CT) 12.5 mL/dL (15.0-23.0); O2Hb 88.9 % (92.0-98.0); PCO2 47.3 mmHg (35.0-45.0); STICK SITE R.BRACHIAL; pH 7.424 (7.360-7.450); sO2 89.4 % (92.0-98.0); tCO2 31.7 mmol/L (24.0-30.0)
[2016-11-13 05:15] LABS: PO2 55.8 mmHg (80.0-100.0)
[2016-11-14] VITALS (13 sets, daily range): BP systolic 11–142; BP diastolic 46–73
[2016-11-15 00:48] VITALS: BP 106/56
[2016-11-15 04:30] VITALS: BP 135/70
[2016-11-15 16:10] VITALS: BP 143/84
[2016-11-15 19:24] VITALS: BP 135/78
[2016-11-16 03:56] VITALS: BP 125/57
[2016-11-16 17:06] VITALS: BP 69/44
[2016-11-16 19:49] VITALS: BP 123/76
[2016-11-17 08:00] VITALS: BP 120/62
[2016-11-18] MEDS ORDERED: TRANSDERM-SCOP1 EACH TRANSDERM (13:19)
[2016-11-18] MEDS ORDERED: MORPHINE 44 MG/1 ML IV PUSH (13:19)
[2016-11-18] MEDS ORDERED: LORAZEPAM 22 MG/1 ML IV PUSH (13:19)
== END 2016-11-18 16:20 | DRG 853 ==
LOC: ER 15:30 → ICU 17:40 → EROBS 17:40 → ICU 18:29 → 4N 11-14 15:48
PROVIDERS: Family Medicine; Internal Medicine Pulmonary Disease; Nurse Practitioner; Surgery
PROC: 02H633Z Insertion of Infusion Device into Right Atrium, Percutaneous Approach (ICD-10-PCS; 2016-11-10)
PROC: 0HRMXJZ Replacement of Right Foot Skin with Synthetic Substitute, External Approach (ICD-10-PCS; principal; 2016-11-11)
PROC: 0QB70ZZ Excision of Left Upper Femur, Open Approach (ICD-10-PCS; principal; 2016-11-11)
PROC: 0QB10ZZ Excision of Sacrum, Open Approach (ICD-10-PCS; principal; 2016-11-11)
PROC: 0HR Skin and Breast, Replacement (ICD-10-PCS; principal; 2016-11-11)
PROC: 30233N1 Transfusion of Nonautologous Red Blood Cells into Peripheral Vein, Percutaneous Approach (ICD-10-PCS; principal; 2016-11-11)
PROC: 0QBL0ZZ Excision of Right Tarsal, Open Approach (ICD-10-PCS; principal; 2016-11-11)
DX: A41.9 Sepsis, unspecified organism (principal); N18.6 End stage renal disease; E43 Unspecified severe protein-calorie malnutrition; R65.21 Severe sepsis with septic shock; L89.154 Pressure ulcer of sacral region, stage 4; L89.224 Pressure ulcer of left hip, stage 4; L89.614 Pressure ulcer of right heel, stage 4; N39.0 Urinary tract infection, site not specified; Z68.1 Body mass index [BMI] 19.9 or less, adult; G20 Parkinson's disease; F02.80 Dementia in other diseases classified elsewhere, unspecified severity, without behavioral disturbance, psychotic disturbance, mood disturbance, and anxiety; E16.2 Hypoglycemia, unspecified; R09.02 Hypoxemia; D63.1 Anemia in chronic kidney disease; Z66 Do not resuscitate; B95.0 Streptococcus, group A, as the cause of diseases classified elsewhere; B96.4 Proteus (mirabilis) (morganii) as the cause of diseases classified elsewhere; Z99.2 Dependence on renal dialysis; Z51.5 Encounter for palliative care
CPT/HCPCS: 10078; 10790; 27000; 32100; 50101; 50386; 50417; 53353; 53354; 54109; 62110; 62900